=== PATIENT | male | born 1970 | race Hispanic/Latino ===

== ENCOUNTER 2018-06-30 11:10 | Emergency (ER) | payer BC, SELFPAY ==
[2018-06-30 11:34] LABS: #Eosinphils 0.2 thou/uL (0.0-0.7); #Lymphocytes 1.8 thou/uL (1.20-3.40); #Monocytes 0.5 thou/uL (0.11-0.59); #Neutrophils 3.5 thou/uL (1.40-6.50); %Basophils 0.8 % (0.0-1.0); %Eosinophils 3.1 % (0.0-10.0); %Lymphocytes 29.8 % (21.0-51.0); %Neutrophils 58.3 % (42.0-75.0); Hemoglobin 16.7 g/dL (14.0-18.0); Mean Corpuscular HGB CONC 35.6 g/dL (32.0-36.0); Mean Corpuscular Hemoglobin 33.7 pg (27.0-31.0); Mean Corpuscular Volume 94.6 fL (78.0-98.0); Mean Platelet Volume 9.3 fL (7.4-10.4); Platelet Count 174 thou/uL (130-400); RBC Distribution Width 11.7 % (11.5-14.5); Red Blood Cell (RBC) Count 4.97 mill/uL (4.70-6.10); White Blood Cell (WBC) Count 6.1 thou/uL (4.8-10.8)
--- NOTE | 2018-06-30 11:57 | RAD ---
CHEST 2 VIEWS: Date: 06/30/18 HISTORY: Chest pain. COMPARISON: 11/05/12. FINDINGS: Cardiac silhouette and pulmonary vasculature are unremarkable. Mediastinum is midline. No confluent a ir space consolidation, pneumothorax, or pleural fluid. IMPRESSION: No active cardiopulmonary abnormalities are demonstrated. POS: [facility]
[2018-06-30 11:58] LABS: ALT (SGPT) 42 U/L (8-55); AST (SGOT) 30 U/L (5-34); Albumin 4.4 g/dL (3.5-5.0); Alkaline Phosphatase 66 U/L (40-150); Anion Gap 14 mmol/L (10-20); BUN (Urea Nitrogen) 16 mg/dL (8.9-20.6); Bilirubin, Total 0.7 mg/dL (0.2-1.2); Calc. Creatinine Clearance 0 mL/min (70-130); Calcium 9.8 mg/dL (7.8-10.44); Carbon Dioxide 25 mmol/L (22-29); Chloride 104 mmol/L (98-107); Estimated GFR-MDRD 89; Globulin 3.3 g/dL (2.4-3.5); Glucose 104 mg/dL (70-105); Lipase 37 U/L (8-78); Potassium 4.1 mmol/L (3.5-5.1); Protein, Total 7.7 g/dL (6.0-8.3); Sodium 139 mmol/L (136-145)
== END 2018-06-30 12:50 | disposition home or self-care (01) ==
LOC: ERS 11:10
DX: R07.9 Chest pain, unspecified (principal); E78.5 Hyperlipidemia, unspecified; F17.210 Nicotine dependence, cigarettes, uncomplicated
CPT/HCPCS: 36415; 71046; 80053; 83690; 84484; 85025; 85379; 93005

== ENCOUNTER 2019-02-02 15:55 | Outpatient (CLI) | payer BC ==
--- NOTE | 2019-02-02 16:29 | RAD ---
PA AND LATERAL OF THE CHEST: 02/02/19 HISTORY: Cough and chest pain. COMPARISON: Prior exam dated 06/30/18. FINDINGS/IMPRESSION: No acute cardiopulmonary abnormalities demonstrated. The examination is unchanged from the comparison . POS: [facility]
== END 2019-02-02 15:56 | disposition home or self-care (01) ==
LOC: BICRAD 15:55
PROVIDERS: ATTEND Family Medicine
DX: R07.1 Chest pain on breathing (principal); R05 Cough
CPT/HCPCS: 71046

== ENCOUNTER 2019-02-22 15:57 | Outpatient (CLI) | payer BC ==
--- NOTE | 2019-02-22 16:36 | RAD ---
Chest 2 views: HISTORY: Cough COMPARISON: 02/02/2019 FINDINGS: Heart size is normal. The lungs are clear. IMPRESSION: No significant acute intrathoracic disease. Stable from prior study.
--- NOTE | 2019-02-22 16:48 | RAD ---
Exam: Thoracic spine 3 views: HISTORY: Back pain FINDINGS: Generalized disc osteophytosis. No acute fracture or dislocation. No significant malalignment. IMPRESSION: Unremarkable thoracic spine
== END 2019-02-22 15:58 | disposition home or self-care (01) ==
LOC: BICRAD 15:57
PROVIDERS: ATTEND Family Medicine
DX: J98.4 Other disorders of lung (principal); M54.6 Pain in thoracic spine; R05 Cough
CPT/HCPCS: 71046; 72072

== ENCOUNTER 2022-10-10 14:18 | Emergency (ER) | payer BC ==
[2022-10-10] MEDS ORDERED: Lidocaine 1% PF 5 ML VIAL ONE (15:55)
[2022-10-10] MEDS ORDERED: Boostrix 0.5 ML (Tdap) VIAL (>/=7 yrs of age) ONE (15:55)
[2022-10-10] MEDS ORDERED: HYDROcodone/Acetaminophen 5/325 mg Tablet ONE (15:55)
[2022-10-10] MEDS ORDERED: Bacitracin 1 PK ONE (17:11)
== END 2022-10-10 17:20 | disposition home or self-care (01) ==
LOC: ERS 14:18
DX: S61.217A Laceration without foreign body of left little finger without damage to nail, initial encounter (principal); E78.00 Pure hypercholesterolemia, unspecified; Z87.891 Personal history of nicotine dependence; W26.9XXA Contact with unspecified sharp object(s), initial encounter
CPT/HCPCS: 12001; 90471; 90715